=== PATIENT | female | born 1995 | race African-American/Black ===

== ENCOUNTER 2019-01-19 06:49 | Emergency (ER) | payer OTHER ==
[~2019-01-19] VITALS: Ht 160 cm; Wt 54.0 kg
[2019-01-19] MEDS ORDERED: KETOROLAC 60MG/2ML VIAL IM ONE (08:15)
[2019-01-19 08:28] VITALS: BP 119/71
[2019-01-19] MEDS ORDERED: BACITRACIN 15GM TUBE TOP ONE (08:45)
[2019-01-19] MEDS ORDERED: BACITRACIN ZINC OINT UDPKT TOP ONE (08:45)
== END 2019-01-19 08:45 | disposition home or self-care (01) ==
LOC: ER 06:49
DX: S60.811A Abrasion of right wrist, initial encounter (principal); V43.52XA Car driver injured in collision with other type car in traffic accident, initial encounter; Y93.89 Activity, other specified; Y92.488 Other paved roadways as the place of occurrence of the external cause
CPT/HCPCS: 73110; 81025; 99283; J1885